=== PATIENT | male | born 1990 | race Caucasian/White ===

== ENCOUNTER 2017-12-03 23:02 | Inpatient (IN) | payer BC, SELFPAY ==
[2017-12-03 23:02] VITALS: BP 134/74; PULSE 132; RESP 18; TEMP 38.2; O2SAT 95; BMI 31.7
[2017-12-03 23:20] VITALS: PULSE 123; TEMP 37.8
[2017-12-04] VITALS (8 sets, daily range): BP systolic 117–133; BP diastolic 56–81; PULSE 93–120; RESP 18–20; TEMP 36.8–39.2; O2SAT 94–98; BMI 32.1
[2017-12-04 01:13] LABS: Absolute Lymphocyte Count 2.13 X10^3/ul (0.83-4.51); Absolute Neutrophil Count 8.2 X10^3/uL (2.0-7.7); Basophil# 0.03 X10^3/uL; Basophil% 0.3 % (0-1); Eosinophil# 0.05 X10^3/uL; Eosinophils% 0.4 % (0-5); Hematocrit 41.1 % (40-54); Hemoglobin 14.1 g/dl (13.0-16.5); Lymphocyte # 2.13 X10^3/ul (4.0); Lymphocyte % 18.9 % (19-41); Mean Corp Hgb Conc 34.3 g/gl (32-36); Mean Corpuscular Hgb 29.3 pg (27.0-32.0); Mean Corpuscular Volume 85.4 fL (80-94); Mean Platelet Vol. 9.5 fl (6.2-12.0); Monocyte# 0.89 X10^3/uL; Monocyte% 7.9 % (0-10); Neutrophil # 8.15 X10^3/uL (2.7-7.7); Neutrophil % 72.3 % (47-70); Platelet Count 179 K/mm3 (150-450); RBC Distribution Width CV 12.2 % (11.6-14.6); RBC Distribution Width SD 38.2 fl (35.1-43.9); Red Blood Count 4.81 M/mm3 (4.6-6.2); White Blood Count 11.3 K/mm3 (4.4-11.0)
[2017-12-04] MEDS: Ketorolac 30 MG/ML Syringe IV ×3 (01:15→18:44)
[2017-12-04] MEDS: 0.9% Normal Saline 1,000 ML 1000 ML IV (01:15)
[2017-12-04 01:16] LABS: POSITIVE COUNT NO; POSITIVE DIFFERENTIAL NO; POSITIVE MORPHOLOGY NO
[2017-12-04 01:34] LABS: Anion Gap 9 (5-15); BUN 14 mg/dL (7-18); BUN/Creat Ratio 10.3 RATIO (10-20); Calcium,Total 8.6 mg/dL (8.5-10.1); Chloride 104 mmol/L (98-107); Creatinine, Serum 1.36 mg/dL (0.70-1.30); EST Glomerular Filtration Rate 66 mL/min (>60); Est Glom Filt Rate - Afr Amer 79 mL/min (>60); Estimated Creatinine Clearance 67.11 ml/min; Glucose 109 mg/dL (74-106); Potassium 3.9 mmol/L (3.5-5.1); Sodium Level 139 mmol/L (136-145)
--- NOTE | 2017-12-04 01:59 | PCM.HP.STD ---
Problem List (1) Boils Status: Acute (2) LEXY (acute kidney injury) Status: Acute History of Present Illness Date of Admission: 12/04/17 Chief Complaint: MULTIPLE BOILS The patient is a 27 year old previously healthy male who presents with multiple boils. Patient reports that about a week ago he developed a small pimple on his bilateral buttocks and also on his neck. These multiple boils progressively increased in size and became more painful. He reports progressively worsening redness at the site of these boils. Because of pain emanating from these boils it has been difficult for him to walk or to sit. Associated with his symptoms is subjective fever, chills and anorexia. At emergency department, patient was found to have a fever of 100.7 and his heart rate went as high as 132. Patient was given vancomycin and Ancef at emergency department. 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 He denies any use of IV drugs. Multiple boils with accompany cellulitis Emergency room doctor reported ultrasound of boil areas did not show any fluid collection. Blood culture x 2 was drawn at emergency department. Received vancomycin and Ancef at emergency department. MRSA PCR serology returned positive. On admission patient was initially started on vancomycin and Unasyn but with MRSA PCR returning positive Unasyn was discontinued; and vancomycin continued. Echocardiogram was ordered. Morphine as needed; oxycodone as needed and Tylenol as needed ordered. Antiemetics as needed ordered. Infectious disease was consulted to optimize management. LEXY His creatinine on admission was 1.36. No other creatinine on file. BUN/creatinine less than 20 Likely intrinsic renal LEXY from infection Prerenal cannot be completely ruled out. Urine sodium; a urine creatinine ordered. Gentle IV hydration Avoid nephrotoxic's. DVT prophylaxis Low risk Ambulate Past Medical History Allergies Sulfa (Sulfonamide Antibiotics) Adverse Reaction (Verified 12/03/17 23:04) Rash Home Medications: Ambulatory Orders Medication Instructions Recorded NK [NK] 12/03/17 Surgical History: no surgical history Lives: Spouse/ Significant Other Smoking Status: Former smoker Alcohol: Occasional - *Family History Maternal History Items: Heart Disease Paternal History Items: Heart Disease Review of Systems Constitutional: Reports: Chills, Fever - Subjective HEENT: Denies: Head Aches, Sinus Congestion, Sinus Drainage Cardiovascular: Denies: Chest Pain, Palpitations Respiratory: Reports: Cough - He attributes to acid reflux Gastrointestinal: Denies: Abdominal Pain, Nausea, Vomiting Genitourinary: Denies: Dysuria Musculoskeletal: Denies: Joint Pain, Joint Tenderness Skin: Denies: Rash, Wounds Neurological: Denies: Numbness, Tingling, Focal weakness Psychiatric: Denies: Anxiety, Depression, Homicidal Ideations, Suicidal Ideations Hematologic/ Lymphatic: Denies: Easy Bruising, Easy Bleeding VTE Information - Inpt Only VTE Present on Admission: No VTE Mechan Device Prophylaxis: None VTE Pharm Prophylaxis ordered?: No Reason prophylaxis not ordered:: Treatment Not Indicated - Low risk Patient Problems: Active and Suspected Problems Boils (Acute) LEXY (acute kidney injury) (Acute) - Physical Exam General: Alert, Oriented x3, Cooperative HEENT: Atraumatic, PERRLA, EOMI, Normocephalic Neck: Supple, No JVD, Negative Carotid Bruits Lungs: Clear to auscultation, Normal air movement Cardiovascular: No murmurs, Tachycardic Abdomen: Bowel Sounds Present Extremities: No edema, Capillary Refill Less than 3 Seconds Skin: - - Indurated area with surrounding redness at the lower neck, close to left shoulder; indurated area; midline necrotic area with surrounding redness at bilateral buttocks. Areas stated above are tender. Vital Signs Temp Pulse Resp BP Pulse Ox 100.3 F H 119 H 18 119/72 96 12/04/17 01:20 12/04/17 01:20 12/04/17 01:20 12/04/17 01:20 12/04/17 01:20 Oxygen Delivery Method Room Air Weight: 83.915 kg Body Mass Index (BMI) 31.7 Laboratory Tests Past 24 Hrs 12/04/17 12/04/17 12/04/17 01:00 01:00 01:00 WBC 11.3 H RBC 4.81 Hgb 14.1 Hct 41.1 MCV 85.4 MCH 29.3 MCHC 34.3 RDW 12.2 RDW Differential 38.2 Plt Count 179 MPV 9.5 Immature Gran % (Auto) 0.200 Neut % (Auto) 72.3 H Lymph % (Auto) 18.9 L [place] % (Auto) 7.9 Eos % (Auto) 0.4 Baso % (Auto) 0.3 Absolute Neuts (auto) 8.2 H Absolute Lymphs (auto) 2.13 Total Counted Not Reportable Sodium 139 Potassium 3.9 Chloride 104 Carbon Dioxide 26.0 Anion Gap 9 BUN 14 Creatinine 1.36 H Estim Creat Clear Calc 67.11 Est GFR (MDRD) Af Amer 79 Est GFR (MDRD) Non-Af 66 BUN/Creatinine Ratio 10.3 Glucose 109 H Lactic Acid 1.0 Calcium 8.6 Assessment/Plan All Active Problems Boils (Acute) LEXY (acute kidney injury) (Acute) The patient is a 27 year old previously healthy male who presents with multiple boils; chills; subjective fever; and found to have a positive MRSA PCR and mild leukocytosis. Multiple boils with accompany cellulitis Emergency room doctor reported ultrasound of boil areas did not show any fluid collection. Blood culture x 2 was drawn at emergency department. Received vancomycin and Ancef at emergency department. MRSA PCR serology returned positive. On admission patient was initially started on vancomycin and Unasyn but with MRSA PCR returning positive Unasyn was discontinued; and vancomycin continued. Echocardiogram was ordered. Morphine as needed; oxycodone as needed and Tylenol as needed ordered. Antiemetics as needed ordered. Infectious disease was consulted to optimize management. LEXY His creatinine on admission was 1.36. No other creatinine on file. BUN/creatinine less than 20 Likely intrinsic renal LEXY from infection Prerenal cannot be completely ruled out. Urine sodium; a urine creatinine ordered. Gentle IV hydration Avoid nephrotoxic's. DVT prophylaxis Low risk Ambulate Code Visit Inpatient E&M: 67931 Init Hosp L3
--- NOTE | 2017-12-04 02:08 | ED.DCSUM_ITS ---
- ER Visit Summary Date of Service: 12/04/17 Chief Complaint: Boils History of Present Illness: The patient is a 27 M who presents with chief complaint of boils. He initially noticed zits on his bilateral buttocks and right shoulder about 1 week ago. They have significantly worsened in the last 2-3 days. He reports chills. He complains of pain. Physical Examination: Temperature 100.1 heart rate 123 Moist mucous membranes Heart regular rhythm tachycardia Lungs are clear Abdomen soft Patient has areas of cellulitis with a central wound over the posterior right shoulder and bilateral buttocks. Essentially the entirety of each buttock is cellulitic very hot to the touch and indurated there does not appear to be any perianal involvement Test Results: Labs notable for white blood cell count 11.3. Creatinine 1.36. Lactic acid normal. [id number] ultrasound performed by myself showed no focal fluid collections amenable to incision and drainage at any of 3 sites. Emergency Department Course and Treatment: Patient was treated with Ancef and vancomycin. He was given Toradol and Tylenol. He states his pain is significantly improved on reevaluation. However he is persistently tachycardic. Given his fever tachycardia and the extent of the cellulitis I do feel he would benefit from hospital observation for ongoing IV antibiotics. He was discussed with the hospitalist and admitted. Treatment Plan: [] Disposition: Admit Impression: Cellulitis, right shoulder and bilateral buttocks This note was generated with [employer] dictation software. It may contain incorrect words, spelling, and punctuation that were not noted in review of the chart prior to signing ED Disposition - Plan for ED Patient: Chief Complaint: Abscess Referrals: Amor Sequeira MD [Primary Care Provider] -
[2017-12-04] MEDS: Acetaminophen 650 MG/20 ML UDC PO ×2 (02:28→18:03)
[2017-12-04] MEDS: Cefazolin 2 GM in 0.9% Normal Saline 100 ML IV (03:24)
--- NOTE | 2017-12-04 03:35 | PHA.PHARE_ITS ---
Consult Pharmacy has been consulted to manage selected antiobiotic: Vancomycin Type of Consult: New start Suspected Infection: Skin/Soft tissue Labs: Sodium 139 mmol/L (136-145) 12/04/17 01:00 Potassium 3.9 mmol/L (3.5-5.1) 12/04/17 01:00 Chloride 104 mmol/L (98-107) 12/04/17 01:00 Carbon Dioxide 26.0 mmol/L (21.0-32.0) 12/04/17 01:00 Anion Gap 9 (5-15) 12/04/17 01:00 BUN 14 mg/dL (7-18) 12/04/17 01:00 Creatinine 1.36 mg/dL (0.70-1.30) H 12/04/17 01:00 Est GFR (MDRD) Af Amer 79 mL/min (>60) 12/04/17 01:00 Est GFR (MDRD) Non-Af 66 mL/min (>60) 12/04/17 01:00 BUN/Creatinine Ratio 10.3 RATIO (10-20) 12/04/17 01:00 Glucose 109 mg/dL (74-106) H 12/04/17 01:00 Estimated Creatinine Clearance: 67.11 Goal Trough: 10-15 mcg/mL Pharmacy Plan for Drug Dosing: Pharmacy Service will continue to monitor and adjust dosing as required. Medications Vancomycin HCl (Vancomycin) 1,000 mg in 200 mls @ 200 mls/hr IV Q12H [facility] Follow-Up Labs: Trough Vancomycin Labs to be done on [date and time ordered]: 12/05 @ 1330
[2017-12-04 03:41] LABS: Bedside Glucose 144 mg/dL (70-110)
[2017-12-04] MEDS: 0.9% Normal Saline 1,000 ML 100 ML IV (04:10)
[2017-12-04 04:28] LABS: Urine Sodium 52 mmol/L (Not Establ.)
[2017-12-04 05:48] LABS: Probe Check PASS
[2017-12-04 05:50] LABS: Absolute Lymphocyte Count 2.53 X10^3/ul (0.83-4.51); Basophil# 0.03 X10^3/uL; Basophil% 0.3 % (0-1); Eosinophils% 0.9 % (0-5); Hematocrit 39.3 % (40-54); Hemoglobin 13.4 g/dl (13.0-16.5); Lymphocyte # 2.53 X10^3/ul (4.0); Lymphocyte % 23.9 % (19-41); Mean Corp Hgb Conc 34.1 g/gl (32-36); Mean Corpuscular Volume 85.1 fL (80-94); Mean Platelet Vol. 9.6 fl (6.2-12.0); Monocyte# 0.96 X10^3/uL; Monocyte% 9.1 % (0-10); Neutrophil # 6.95 X10^3/uL (2.7-7.7); Neutrophil % 65.6 % (47-70); Platelet Count 187 K/mm3 (150-450); RBC Distribution Width SD 36.2 fl (35.1-43.9); Red Blood Count 4.62 M/mm3 (4.6-6.2); White Blood Count 10.6 K/mm3 (4.4-11.0)
[2017-12-04 05:50] LABS: M R Staph aureus DNA By PCR POSITIVE (Negative)
[2017-12-04 06:02] LABS: POSITIVE COUNT NO; POSITIVE DIFFERENTIAL NO; POSITIVE MORPHOLOGY NO
[2017-12-04 06:10] LABS: Anion Gap 8 (5-15); BUN 12 mg/dL (7-18); BUN/Creat Ratio 9.4 RATIO (10-20); Calcium,Total 8.2 mg/dL (8.5-10.1); Chloride 107 mmol/L (98-107); Creatinine, Serum 1.27 mg/dL (0.70-1.30); EST Glomerular Filtration Rate 71 mL/min (>60); Est Glom Filt Rate - Afr Amer 86 mL/min (>60); Estimated Creatinine Clearance 71.86 ml/min; Glucose 115 mg/dL (74-106); Potassium 3.5 mmol/L (3.5-5.1); Sodium Level 142 mmol/L (136-145)
[2017-12-04 07:34] LABS: Hemoglobin A1c 5.2 % (4.2-6.3)
[2017-12-04] MEDS: Morphine 2 MG/ML Syringe IV (09:54)
--- NOTE | 2017-12-04 10:43 | ECHOD_ITS ---
Reason For Study: + MRSA, R/O VEGETATION Procedure This was a 2D Doppler, Color Flow transthoracic echocardiogram. Exam performed portable in patient room. Left Ventricle Normal size and thickness. The estimated ejection fraction is 65 %. Normal diastology for age. No regional wall motion abnormalities noted. Right Ventricle Normal size and thickness. Normal systolic function. Atria Normal left atrium. Normal right atrium. Normal atrial septum. Mitral Valve The mitral valve is structurally normal. No prolapse or stenosis seen. Tricuspid Valve Normal tricuspid valve. Trivial tricuspid valve insufficiency. Right ventricular systolic pressure estimated to be 24 mmHg. Aortic Valve Normal aortic valve. Trisinus/trileaflet aortic valve. Pulmonic Valve Normal pulmonic valve. Trivial pulmonic valve insufficiency. Great Vessels Normal aortic root. Normal arch. Normal inferior vena cava. Inferior vena cava collapse with sniff. Pericardium/Pleural No pericardial effusion. MMode/2D Measurements & Calculations LVIDd: 4.4 cm IVSd: 0.94 cm Ao root diam: 3.2 cm LVIDs: 2.8 cm LVPWd: 0.95 cm LA dimension: 3.1 cm RVDd: 3.1 cm FS: 36.8 % LAV(MOD-bp): 33.5 ml LA A4 area: 13.5 cm2 RA A4 area: 11.0 cm2 LAV(MOD-bp) Indexed: 17.6 ml/m2 LAV(MOD-sp2): 31.3 ml LAV(MOD-sp4): 32.6 ml Doppler Measurements & Calculations MV E max alex: 85.3 cm/sec Lat Peak E' Alex: 16.0 cm/sec Med Peak E' Alex: 12.6 cm/sec MV A max alex: 63.9 cm/sec E/E' lat: 5.3 E/E' med: 6.8 MV E/A: 1.3 Ao V2 max: 113.2 cm/sec LV V1 max: 84.9 cm/sec PA V2 max: 104.2 cm/sec Ao max P.1 mmHg LV V1 max P.9 mmHg Interpretation Summary The estimated ejection fraction is 65 %. Normal diastology for age. Trivial tricuspid valve insufficiency. Right ventricular systolic pressure estimated to be 24 mmHg. There is no comparison study available. Ordering Physician: Juan Brunner Referring Physician: Amor Sequeira Performed By: Kemi Hunt, JOSE MANUEL, RVT
--- NOTE | 2017-12-04 11:36 | PCM.HP.ID ---
Problem List (1) Boils Status: Acute Reason for Consult: boils Consulted by: Dr. Oswald History of Present Illness: The patient is a 27 year old M with h/o MRSA chin infection in the spring who presented last night with one week of painful, red, swollen, draining abscess on back of neck and bilateral buttocks. Started as small bumps, tried popping one when it came to a head. Using peroxide and warm compresses. No outpt abx. with h/o MRSA as well. Developed fever, chills, some bloody/purulent drainage. Some nausea. Came to ED, given unasyn and cefazolin. Now on vanc. Full ROS performed and neg except as noted above. - Medical History Allergies/Adverse Reactions: Allergies Sulfa (Sulfonamide Antibiotics) Adverse Reaction (Verified 12/03/17 23:04) Rash Home Medications: Ambulatory Orders Medication Instructions Recorded NK [NK] 12/03/17 - Social History SMOKING STATUS:: Former smoker Vital Signs Temp Pulse Resp BP Pulse Ox 98.3 F 108 H 18 133/78 H 98 12/04/17 09:52 12/04/17 09:52 12/04/17 09:52 12/04/17 09:52 12/04/17 09:52 Oxygen Delivery Method Room Air Weight: 84.9 kg Body Mass Index (BMI) 32.1 Laboratory Tests Past 24 Hrs 12/04/17 12/04/17 12/04/17 03:35 04:00 04:00 WBC RBC Hgb Hct MCV MCH MCHC RDW RDW Differential Plt Count MPV Immature Gran % (Auto) Neut % (Auto) Lymph % (Auto) [place] % (Auto) Eos % (Auto) Baso % (Auto) Absolute Neuts (auto) Absolute Lymphs (auto) Total Counted Sodium Potassium Chloride Carbon Dioxide Anion Gap BUN Creatinine Estim Creat Clear Calc Est GFR (MDRD) Af Amer Est GFR (MDRD) Non-Af BUN/Creatinine Ratio Glucose Hemoglobin A1c Calcium Ur Random Sodium 52 Urine Creatinine 56.70 MRSA (PCR) POSITIVE H 12/04/17 12/04/17 12/04/17 05:10 05:10 05:10 WBC 10.6 RBC 4.62 Hgb 13.4 Hct 39.3 L MCV 85.1 MCH 29.0 MCHC 34.1 RDW 12.0 RDW Differential 36.2 Plt Count 187 MPV 9.6 Immature Gran % (Auto) 0.200 Neut % (Auto) 65.6 Lymph % (Auto) 23.9 [place] % (Auto) 9.1 Eos % (Auto) 0.9 Baso % (Auto) 0.3 Absolute Neuts (auto) 7.0 Absolute Lymphs (auto) 2.53 Total Counted Not Reportable Sodium 142 Potassium 3.5 Chloride 107 Carbon Dioxide 27.0 Anion Gap 8 BUN 12 Creatinine 1.27 Estim Creat Clear Calc 71.86 Est GFR (MDRD) Af Amer 86 Est GFR (MDRD) Non-Af 71 BUN/Creatinine Ratio 9.4 L Glucose 115 H Hemoglobin A1c 5.2 Calcium 8.2 L Ur Random Sodium Urine Creatinine MRSA (PCR) - Other Studies Radiology: [] reviewed Other Studies: [] Route of nutrition/ use of supplements: [] Nutritional Intake: [] IV Site: [] Berkowitz Catheter: [] - Physical Exam General: Alert, Oriented x3, Cooperative, No apparent distress HEENT: Atraumatic, PERRLA, EOMI Neck: Supple, No Nodes Lungs: Clear to auscultation, Normal air movement Cardiovascular: Regular rate, Regular Rhythm Abdomen: Soft, Non Tender, Non-Distended Extremities: No edema Skin: - - 3 warm, tender, red, indurated areas of swelling with some central ulceration on back of neck and each buttock. IV Site: Peripheral, without redness Musculoskeletal: No Tenderness to Palpation of Joints or Extremities Neurological: Cranial nerves II-XII grossly intact - Assessment/Plan Antibiotics: [] Assessment/Plan: [] Active and Suspected Problems Boils (Acute) LEXY (acute kidney injury) (Acute) MRSA skin abscess on neck and bilat buttocks - one prior episode of skin infection. Reports rash with bactrim. Cont vanc. Recommend surg consult for I&D. Will follow, thank you.
--- NOTE | 2017-12-04 11:55 | CASEMGMT ---
SEE RN CM ASSESS LINK: D/C PLAN: Home Intro self and RN CM role to pt and pt's , Miriam, who is at bedside. Pt is alert/oriented, willing to participate in assessment, and able to answer questions appropriately. Pt is independent w/all ADL's, uses no DME, denies needs, and no needs identified. Pt wishes to return home @ discharge. Surgery consult pending. CM to follow for any discharge planning needs that may arise. Juan JAQUEZN RN CM
[2017-12-04] MEDS: 0.9% NaCl Peripheral Flush Adult/Peds IV ×2 (12:19→18:44)
--- NOTE | 2017-12-04 13:19 | PCA ---
doctor and rn in with pt
[2017-12-04] MEDS: Vancomycin IV 1,000 MG/200 ML BAG 200 MG IV (13:41)
--- NOTE | 2017-12-04 15:32 | PCM.CONS.GEN ---
Reason for Consult Date of Consultation: 12/04/17 History of Present Illness: The patient is a 27 year old M with a previous history of MRSA infection in his chin, who now presents with a few day history of increasing erythema, tenderness and now pain with sitting and 2 areas on his right and left gluteal regions and a smaller as upper back. The patient was seen in emergency department. A nasal swab for MRSA was obtained which was positive. The 2 buttock sites were evaluated in the area with ultrasound and felt not to contain pus. The patient was admitted, started on antibiotics. Evaluation there by the medicine service noted was felt to be more erythema on both the right and left buttock areas along with black skin/tissue necrosis in the center of the left buttock region. I was contacted for likely MRSA abscesses Past Medical History Allergies Sulfa (Sulfonamide Antibiotics) Adverse Reaction (Verified 12/03/17 23:04) Rash Home Medications: Ambulatory Orders Medication Instructions Recorded NK [NK] 12/03/17 Surgical History: no surgical history Lives: Spouse/ Significant Other Smoking Status: Former smoker Alcohol: Occasional - *Family History Maternal History Items: Heart Disease Paternal History Items: Heart Disease Review of Systems Constitutional: Denies: Chills, Fever, Weight Change HEENT: Denies: Head Aches, Sinus Congestion, Sinus Drainage Cardiovascular: Denies: Chest Pain, Palpitations Respiratory: Denies: Cough, Shortness of breath at rest, Sputum production Gastrointestinal: Denies: Abdominal Pain, Nausea, Vomiting Genitourinary: Denies: Dysuria Musculoskeletal: Denies: Joint Pain, Joint Tenderness Skin: Denies: Rash, Wounds Neurological: Denies: Numbness, Tingling, Focal weakness Psychiatric: Denies: Anxiety, Depression, Homicidal Ideations, Suicidal Ideations Hematologic/ Lymphatic: Denies: Easy Bruising, Easy Bleeding Patient Problems: Active and Suspected Problems Boils (Acute) LEXY (acute kidney injury) (Acute) - Physical Exam General: Alert, Oriented x3 Lungs: Clear to auscultation, Normal air movement Cardiovascular: Regular rate, Regular Rhythm Abdomen: Bowel Sounds Present, Soft Skin: - - right and left buttock areas, 2 areas of cellulitis and induration without true fluctuance. On the left lower buttock region, there is a 1 cm central area of what appears to be skin necrosis. The skin relatively black. On the left buttock, there is a very small point area of darkness. Both these sites were suspicious for undrained MRSA abscesses. Vital Signs Temp Pulse Resp BP Pulse Ox 99.2 F H 93 18 126/81 H 98 12/04/17 13:39 12/04/17 13:39 12/04/17 13:39 12/04/17 13:39 12/04/17 13:39 Oxygen Delivery Method Room Air Weight: 84.9 kg Body Mass Index (BMI) 32.1 Intake and Output for Last 24 Hours 12/02/17 12/03/17 12/04/17 23:59 23:59 23:59 Intake Total 1508 / 1508 Balance 1508 / 1508 Laboratory Tests Past 24 Hrs 12/04/17 12/04/17 12/04/17 03:35 04:00 04:00 WBC RBC Hgb Hct MCV MCH MCHC RDW RDW Differential Plt Count MPV Immature Gran % (Auto) Neut % (Auto) Lymph % (Auto) [place] % (Auto) Eos % (Auto) Baso % (Auto) Absolute Neuts (auto) Absolute Lymphs (auto) Total Counted Sodium Potassium Chloride Carbon Dioxide Anion Gap BUN Creatinine Estim Creat Clear Calc Est GFR (MDRD) Af Amer Est GFR (MDRD) Non-Af BUN/Creatinine Ratio Glucose Hemoglobin A1c Calcium Ur Random Sodium 52 Urine Creatinine 56.70 MRSA (PCR) POSITIVE H 12/04/17 12/04/17 12/04/17 05:10 05:10 05:10 WBC 10.6 RBC 4.62 Hgb 13.4 Hct 39.3 L MCV 85.1 MCH 29.0 MCHC 34.1 RDW 12.0 RDW Differential 36.2 Plt Count 187 MPV 9.6 Immature Gran % (Auto) 0.200 Neut % (Auto) 65.6 Lymph % (Auto) 23.9 [place] % (Auto) 9.1 Eos % (Auto) 0.9 Baso % (Auto) 0.3 Absolute Neuts (auto) 7.0 Absolute Lymphs (auto) 2.53 Total Counted Not Reportable Sodium 142 Potassium 3.5 Chloride 107 Carbon Dioxide 27.0 Anion Gap 8 BUN 12 Creatinine 1.27 Estim Creat Clear Calc 71.86 Est GFR (MDRD) Af Amer 86 Est GFR (MDRD) Non-Af 71 BUN/Creatinine Ratio 9.4 L Glucose 115 H Hemoglobin A1c 5.2 Calcium 8.2 L Ur Random Sodium Urine Creatinine MRSA (PCR) POC Glucose 12/04/17 03:11 POC Glucose 144 H Assessment/Plan All Active Problems Boils (Acute) LEXY (acute kidney injury) (Acute) PROCEDURE: INCISION AND DRAINAGE OF BUTTOCK CELLULITIS/ABSCESS After consent was obtained and the site, person, and procedure verified, the patient`s skin was prepped and draped in the usual fashion. Lidocaine was injected into the skin on the left buttock area over the central area. An 18-gauge needle was inserted into the site without any significant pus being aspirated. Given the fact that there was necrotic tissue. A circular incision was made over the black./Necrotic tissue. This was excised and then sent for culture. The wound was again probed with no significant purulent drainage. The cavity was packed with iodoform gauze. Lidocaine was injected into the skin on the right buttock area over the central area. An 18-gauge needle was inserted into the site without any significant pus being aspirated. the site was not opened or packed. The patient tolerated the procedure well. impression-likely MRSA cellulitis/questionable early abscess. We will follow these areas. Would not be surprised if this did coalesce to a more drainable abscess or have purulent drainage from the already open site. Recommend continuing antibiotics. Await culture swab from tissue I sent to assure MRSA.
--- NOTE | 2017-12-04 18:34 | PCM.HOSP.N ---
Hospitalist Note Patient seen and examined briefly today, I discussed his care with infectious diseases and general surgery saw the patient in an attempt to drain 1 of the patient's boils-general surgery is not able to obtain any drainage from any of the patient's boils. Patient will remain on his present antibiotic coverage and be reevaluated by infectious diseases myself tomorrow
[2017-12-05] MEDS: Vancomycin IV 1,000 MG/200 ML BAG 200 MG IV ×2 (01:43→13:42)
[2017-12-05] MEDS: 0.9% NaCl Peripheral Flush Adult/Peds IV ×4 (01:43→22:30)
[2017-12-05 01:48] VITALS: BP 114/83; PULSE 120; RESP 18; TEMP 38; O2SAT 96
[2017-12-05] MEDS: Acetaminophen 650 MG/20 ML UDC PO ×2 (01:58→19:43)
[2017-12-05] MEDS: Ketorolac 30 MG/ML Syringe IV ×3 (02:57→19:43)
[2017-12-05 06:07] VITALS: TEMP 36.8
--- NOTE | 2017-12-05 07:33 | PCM.PN.SRG ---
Patient Problems: Active and Suspected Problems Boils (Acute) LEXY (acute kidney injury) (Acute) Subjective: same level of discomfort at the back and buttocks sites - Physical Exam Skin: - - continued induration around the previously drained left buttock site and similar induration on the right buttock site. The packing was removed, there was no purulent drainage. The tissue appears viable Vital Signs Temp Pulse Resp BP Pulse Ox 98.3 F 120 H 18 114/83 H 96 12/05/17 06:07 12/05/17 01:48 12/05/17 01:48 12/05/17 01:48 12/05/17 01:48 Oxygen Delivery Method Room Air Weight: 84.9 kg Body Mass Index (BMI) 32.1 Intake and Output for Last 24 Hours 12/03/17 12/04/17 12/05/17 23:59 23:59 23:59 Intake Total 2308 / 2308 742 / 742 Balance 2308 / 2308 742 / 742 Laboratory Tests Past 24 Hrs 12/04/17 05:10 Hemoglobin A1c 5.2 Medical Necessity - Tobacco Use Smoking Status: Former smoker Assessment/Plan All Active Problems Boils (Acute) LEXY (acute kidney injury) (Acute) impression-likely MRSA cellulitis/questionable early abscess. We will follow these areas. Would not be surprised if this did coalesce to a more drainable abscess or have purulent drainage from the already open site. Recommend continuing antibiotics. Await culture swab from tissue I sent to assure MRSA.
[2017-12-05 08:30] VITALS: BP 125/85; PULSE 108; RESP 18; TEMP 37.3; O2SAT 99
--- NOTE | 2017-12-05 10:14 | PCM.PROGNOTE ---
Patient Problems: Active and Suspected Problems Boils (Acute) LEXY (acute kidney injury) (Acute) Subjective: Patient seen and examined today, he states his pain from his boils is controlled with Toradol. General surgery saw the patient this morning and feels that the reddened area on his left buttocks is improved today. Patient's T-max for today is 100.4. - Physical Exam General: Alert, Oriented x3, Cooperative, No apparent distress, Well developed, Well nourished HEENT: Atraumatic, PERRLA, EOMI, Normocephalic Oral: Moist Mucosa Neck: Supple, No Nuchal Rigidity, Trachea Midline, Thyroid Normal Size and Texture Lungs: Clear to auscultation, Normal air movement, No rhonchi, No wheeze, No rales Cardiovascular: Regular rate, Regular Rhythm, Normal S1, Normal S2, No murmurs, No Ectopic Activity Abdomen: Bowel Sounds Present, Soft, Non Tender, Non-Distended Extremities: No edema, Capillary Refill Less than 3 Seconds Musculoskeletal: No Tenderness to Palpation of Joints or Extremities Neurological: Cranial nerves II-XII grossly intact, Neuro grossly intact, Sensory exam intact to light touch and pain, Coordination normal Psych/Mental Status: Normal Affect, Appropriate, Alert and oriented to time, place, person, mood and affect Vital Signs Temp Pulse Resp BP Pulse Ox 99.2 F H 108 H 18 125/85 H 99 12/05/17 08:30 12/05/17 08:30 12/05/17 08:30 12/05/17 08:30 12/05/17 08:30 Oxygen Delivery Method Room Air Weight: 84.9 kg Body Mass Index (BMI) 32.1 Intake and Output for Last 24 Hours 12/03/17 12/04/17 12/05/17 23:59 23:59 23:59 Intake Total 2308 / 2308 742 / 742 Balance 2308 / 2308 742 / 742 Medical Necessity - Tobacco Use Smoking Status: Former smoker Assessment/Plan All Active Problems Boils (Acute) LEXY (acute kidney injury) (Acute) #1 multiple skin boils over buttocks and upper mid back area-from MRSA, continue vancomycin IV, ID is seeing the patient, he will probably go home on p.o. antibiotics. Code Visit Inpatient E&M: 74464 Subs Hosp L2
--- NOTE | 2017-12-05 11:09 | PCM.PN.ID ---
Patient Problems: Active and Suspected Problems Boils (Acute) LEXY (acute kidney injury) (Acute) Subjective: Fever overnight, feeling a little better. Buttocks still sore. Neck better after some pus drained this AM. - Physical Exam General: Alert, Cooperative, No apparent distress Lungs: Clear to auscultation, Normal air movement Cardiovascular: Regular rate, Regular Rhythm Abdomen: Soft, Non Tender, Non-Distended Skin: - - redness/induration/pain/warmth over neck and bilat buttocks Vital Signs Temp Pulse Resp BP Pulse Ox 99.2 F H 108 H 18 125/85 H 99 12/05/17 08:30 12/05/17 08:30 12/05/17 08:30 12/05/17 08:30 12/05/17 08:30 Oxygen Delivery Method Room Air Weight: 84.9 kg Body Mass Index (BMI) 32.1 Intake and Output for Last 24 Hours 12/03/17 12/04/17 12/05/17 23:59 23:59 23:59 Intake Total 2308 / 2308 742 / 742 Balance 2308 / 2308 742 / 742 Medical Necessity - Tobacco Use Smoking Status: Former smoker Route of nutrition/ use of supplements: [] Nutritional Intake: [] IV Site: [] Berkowitz Catheter: [] - Assessment/Plan Antibiotics: [] Assessment/Plan: [] Active and Suspected Problems Boils (Acute) LEXY (acute kidney injury) (Acute) suspected MRSA skin abscess on neck and bilat buttocks - one prior episode of skin infection. Reports rash with bactrim. Cont vanc. Neck better after some drainage happened. Surgery following. Will follow
[2017-12-05 13:34] LABS: Vancomycin, Trough Level 5.3 ug/mL (5.0-15.0)
[2017-12-05 13:41] VITALS: BP 134/87; PULSE 105; RESP 18; TEMP 36.7; O2SAT 98
--- NOTE | 2017-12-05 15:04 | PCM.RX.CS ---
Consult Pharmacy has been consulted to manage selected antiobiotic: Vancomycin Type of Consult: Follow-up Suspected Infection: Skin/Soft tissue Prior Doses of Antibiotics Received/Current Regimen: VANCOMYCIN 1000MG IV Q12H 12/05 @0143, 1342 Labs: Sodium 142 mmol/L (136-145) 12/04/17 05:10 Potassium 3.5 mmol/L (3.5-5.1) 12/04/17 05:10 Chloride 107 mmol/L (98-107) 12/04/17 05:10 Carbon Dioxide 27.0 mmol/L (21.0-32.0) 12/04/17 05:10 Anion Gap 8 (5-15) 12/04/17 05:10 BUN 12 mg/dL (7-18) 12/04/17 05:10 Creatinine 1.27 mg/dL (0.70-1.30) 12/04/17 05:10 Est GFR (MDRD) Af Amer 86 mL/min (>60) 12/04/17 05:10 Est GFR (MDRD) Non-Af 71 mL/min (>60) 12/04/17 05:10 BUN/Creatinine Ratio 9.4 RATIO (10-20) L 12/04/17 05:10 Glucose 115 mg/dL (74-106) H 12/04/17 05:10 Vancomycin Trough 5.3 ug/mL (5.0-15.0) 12/05/17 12:40 Microbiology: Microbiology 12/04/17 13:30 Other - Buttock Gram Stain - Final 12/04/17 13:30 Other - Buttock Tissue Culture - Preliminary Staphylococcus aureus Weight used for dosin.9 kg Estimated Creatinine Clearance: 71ML/MIN Goal Trough: 10-15 mcg/mL Pharmacy Plan for Drug Dosing: Pharmacy to manage vancomycin for suspected SSTI. The patient had a trough drawn which resulted in a value of 5.3 (11hr level). Since the patient has a trough goal of 10-15, will increase the dose and check another trough prior to the 4th dose of new regimen. PLAN/RECOMMENDATIONS 1. Vancomycin 1250mg Q8hrs to start 12/05 @2200 2. Schedule trough for 12/06/17 @2130 3. Pharmacy Service will continue to monitor and adjust dosing as required.
[2017-12-05 19:53] VITALS: BP 135/78; PULSE 83; RESP 16; TEMP 38.2; O2SAT 100
[2017-12-05 22:37] VITALS: TEMP 37.4
[2017-12-06 02:55] VITALS: BP 129/84; PULSE 82; RESP 16; TEMP 36.4; O2SAT 98
[2017-12-06] MEDS: 0.9% NaCl Peripheral Flush Adult/Peds IV ×4 (05:51→13:27)
[2017-12-06 07:40] VITALS: BP 125/85; PULSE 102; RESP 16; TEMP 37.1; O2SAT 97
[2017-12-06 07:43] VITALS: PULSE 100
[2017-12-06 07:54] VITALS: O2SAT 95
[2017-12-06] MEDS: Ketorolac 30 MG/ML Syringe IV (07:57)
--- NOTE | 2017-12-06 14:29 | PCM.PN.ID ---
Patient Problems: Active and Suspected Problems Boils (Acute) LEXY (acute kidney injury) (Acute) Subjective: Feeling better, no fever, no n/v/d. - Physical Exam General: Alert, Cooperative, No apparent distress Lungs: Clear to auscultation, Normal air movement Cardiovascular: Regular rate, Regular Rhythm Abdomen: Soft, Non Tender, Non-Distended Skin: Ulcer/ Wound - neck improved, bilat buttocks abscess slightly better Vital Signs Temp Pulse Resp BP Pulse Ox 98.8 F 100 16 125/85 H 95 12/06/17 07:40 12/06/17 07:43 12/06/17 07:40 12/06/17 07:40 12/06/17 07:54 Oxygen Delivery Method Room Air Weight: 84.9 kg Body Mass Index (BMI) 32.1 Intake and Output for Last 24 Hours 12/04/17 12/05/17 12/06/17 23:59 23:59 23:59 Intake Total 2308 / 2308 1678 / 1678 Balance 2308 / 2308 1678 / 1678 Microbiology Past 72 Hours 12/04/17 13:30 Gram Stain - Final Other - Buttock Tissue Culture - Final Meth. resistant Staph. aureus Anaerobic Culture - Final No anaerobic bacteria isolated. Medical Necessity - Tobacco Use Smoking Status: Former smoker Route of nutrition/ use of supplements: [] Nutritional Intake: [] IV Site: [] Berkowitz Catheter: [] - Assessment/Plan Antibiotics: [] Assessment/Plan: [] Active and Suspected Problems Boils (Acute) LEXY (acute kidney injury) (Acute) suspected MRSA skin abscess on neck and bilat buttocks - one prior episode of skin infection. Reports rash with bactrim. Neck improved. Ok for d/c home on 10 days doxy capsults. Will follow
[2017-12-06 14:30] VITALS: BP 126/71; PULSE 90; RESP 18; TEMP 36.8; O2SAT 92
--- NOTE | 2017-12-06 15:50 | DCINST_ITS ---
- Discharge Diagnoses Current Active Problems: Current Active and Chronic Problems Boils (Acute) LEXY (acute kidney injury) (Acute) You will use the following diet at home:: No restrictions Your food should be the consistency of: Regular Your liquids should be the consistency of: Regular/Thin Discharge Activity: Return to Normal Activity Return to work on:: 12/09/17 Weight Bearing Status: Full weight bearing Allergies/Adverse Reactions: Allergies Sulfa (Sulfonamide Antibiotics) Adverse Reaction (Verified 12/03/17 23:04) Rash Medications to take at Discharge Doxycycline 100 mg PO BID #20 cap 12/06/17 The following prescriptions were given: Doxycycline 100 mg PO BID #20 cap Primary Care Physician: Amor Sequeira MD [Primary Care Provider] - Please follow up with your Primary Care Physician in: in 1-2 weeks Test Results: Test results from this visit will be discussed in further detail at your follow- up appointment, if applicable.
--- NOTE | 2017-12-08 11:07 | PCM.DC.SUM ---
Discharge Date and Diagnosis Date of Admission: 12/04/17 Date of Discharge: 12/06/17 - Primary Discharge Diagnosis #1 MRSA skin abscess on neck and bilateral buttocks #2 dehydration Hospital Course and Treatment Operations: None Procedures: 2-D Echocardiogram Summary of Care Provided: The patient is a 27 year old M who was seen in the emergency room at [facility] chief complaint of painful boils on his buttocks and upper back area. Workup in the emergency room included a CBC which showed a slightly elevated white blood cell count, patient's creatinine was slightly elevated at 1.36. Patient had a PCR performed on 1 of the areas and this came back positive for MRSA. Patient was admitted to [facility] surgical 2, maintained on IV vancomycin, was seen by general surgery who attempted to open up 1 of the areas for a culture but was unable to express any purulent discharge, and seen by infectious diseases. Patient improved during his hospital stay there were no complications, on 12/06/17, patient was seen and examined felt to be in stable condition for discharge home, he was discharged home on Vibramycin oral. Discharge Activity: Return to Normal Activity Return to work on:: 12/09/17 Weight Bearing Status: Full weight bearing Home Medications: Medications to take at Discharge Doxycycline 100 mg PO BID #20 cap 12/06/17 Following Prescrptions Were Given to Patient: Doxycycline 100 mg PO BID #20 cap Primary Care Physician: Amor Sequeira MD [Primary Care Provider] - Please follow up with your Primary Care Physician in: in 1-2 weeks Disposition: Home Minutes spent on discharge:: 32 Patient Condition:: Stable Medical Necessity - Tobacco Use Smoking Status: Former smoker Meaningful Use Info Meaningful Use Diagnoses (Choose all that apply): None applicable Code Visit Inpatient E&M: 94012 Disch Hosp
--- NOTE | 2017-12-08 11:11 | DS.PCM_ITS ---
Discharge Date and Diagnosis Date of Admission: 12/04/17 Date of Discharge: 12/06/17 - Primary Discharge Diagnosis #1 MRSA skin abscess on neck and bilateral buttocks #2 dehydration Hospital Course and Treatment Operations: None Procedures: 2-D Echocardiogram Summary of Care Provided: The patient is a 27 year old M who was seen in the emergency room at [facility] chief complaint of painful boils on his buttocks and upper back area. Workup in the emergency room included a CBC which showed a slightly elevated white blood cell count, patient's creatinine was slightly elevated at 1.36. Patient had a PCR performed on 1 of the areas and this came back positive for MRSA. Patient was admitted to [facility] surgical 2, maintained on IV vancomycin, was seen by general surgery who attempted to open up 1 of the areas for a culture but was unable to express any purulent discharge, and seen by infectious diseases. Patient improved during his hospital stay there were no complications, on 12/06/17, patient was seen and examined felt to be in stable condition for discharge home, he was discharged home on Vibramycin oral. Discharge Activity: Return to Normal Activity Return to work on:: 12/09/17 Weight Bearing Status: Full weight bearing Home Medications: Medications to take at Discharge Doxycycline 100 mg PO BID #20 cap 12/06/17 Following Prescrptions Were Given to Patient: Doxycycline 100 mg PO BID #20 cap Primary Care Physician: Amor Sequeira MD [Primary Care Provider] - Please follow up with your Primary Care Physician in: in 1-2 weeks Disposition: Home Minutes spent on discharge:: 32 Patient Condition:: Stable Medical Necessity - Tobacco Use Smoking Status: Former smoker Meaningful Use Info Meaningful Use Diagnoses (Choose all that apply): None applicable Code Visit Inpatient E&M: 36965 Disch Hosp
== END 2017-12-06 16:24 | disposition home or self-care (01) | DRG 603 ==
LOC: ED 12-04 00:37 → MS2 12-04 02:21
PROVIDERS: Admitting Provider Hospitalist; Emergency Provider Emergency Medicine; Family Provider Family Medicine; PCP Family Medicine; Visit Provider Internal Medicine
DX: L02.31 Cutaneous abscess of buttock (principal); L02.11 Cutaneous abscess of neck; N17.9 Acute kidney failure, unspecified; B95.62 Methicillin resistant Staphylococcus aureus infection as the cause of diseases classified elsewhere; E86.0 Dehydration; Z86.14 Personal history of Methicillin resistant Staphylococcus aureus infection
CPT/HCPCS: 36415; 80048; 80202; 82570; 82962; 83036; 83605; 84300; 85025; 87040; 87070; 87075; 87077; 87186; 87205; 87641; 93306; 99282; J7030; J7050; Q9957; A4216; J0295

== ENCOUNTER 2021-10-06 23:18 | Emergency (ER) | payer BC, SELFPAY ==
[2021-10-06 23:22] VITALS: BP 118/80; PULSE 133; RESP 18; TEMP 37.2; O2SAT 95; BMI 36.3
[2021-10-07 00:11] LABS: Bacteria 0 SEEN /hpf (None Seen); Mucous, Urine 0 SEEN /hpf (<or=2+); Red Blood Cells-Urine 0 SEEN /hpf (0-5); Squamous Epithelial Cells - UA 0 SEEN /hpf (0-5); White Blood Cells 0 SEEN /hpf (0-5)
[2021-10-07 00:37] LABS: Color, Urine Yellow (Yellow); Glucose, Dipstick Normal (Normal); Ketone-Dipstick Negative (Negative); Leukocyte Esterase-Dipstick 25 /ul (Negative); Nitrite-Dipstick Negative (Negative); Occult Blood-Urine 25 /ul (Negative); Protein-Dipstick 15 mg/dl (Negative); Urine Bilirubin Dipstick Negative (Negative); Urine Clarity Clear (Clear); Urine Urobilinogen Normal (Normal)
--- NOTE | 2021-10-07 00:39 | EDS_ITS ---
HPI History of Present Illness Chief Complaint: Male Pain/Injury Narrative Narrative: Patient is a 31-year-old male who states he was recently seen by his doctor with concern for prostatitis. He states he was started on Levaquin but that a few hours ago he spiked a fever up to 103. Patient states that he was concerned this could be secondary to his recent diagnosis of prostatitis and therefore comes in for evaluation. PFSH PFSH Medical History no medical history Home Medications levofloxacin 500 mg tablet 500 mg PO DAILY 10/06/21 [History Last Taken Unknown] dexamethasone 6 mg tablet (Decadron) 6 mg PO DAILY 10 days #10 tabs 10/07/21 [Rx Last Taken Unknown] promethazine 6.25 mg-codeine 10 mg/5 mL syrup 5 ml PO 4X/DAY PRN PRN cough 7 days #140 mL 10/07/21 [Rx Last Taken Unknown] Allergy/AdvReac Type Severity Reaction Status Date / Time Sulfa (Sulfonamide AdvReac Rash Verified 10/06/21 23:26 Antibiotics) Social History Smoking Status: Former smoker ROS [facility] ED Constitutional Constitutional ED: Reports chills and fever(s) ENT ENT ED: Reports rhinorrhea; Denies sore throat Cardiovascular Cardiovascular: Denies chest pain Respiratory/Chest Respiratory/Chest: Reports cough; Denies dyspnea Gastrointestinal Gastrointestinal: Denies abdominal pain, diarrhea, nausea or vomiting Genitourinary Genitourinary ED: Denies dysuria or hematuria Musculoskeletal Musculoskeletal: Reports myalgias Integumentary Denies rash Neurologic Neurologic: Denies headache(s) Hematologic/Lymphatic Hematologic/Lymphatic: Denies easy bleeding or easy bruising EXAM Physical Exam Const Vital Signs: 10/06/21 23:22 Temperature 99 F Temperature Source Temporal Pulse Rate 133 H Respiratory Rate 18 Blood Pressure 118/80 Blood Pressure Mean 92 Pulse Ox 95 Oxygen Delivery Method Room Air Positive well nourished and well developed General Appearance ED: well developed HEENT Reports moist mucous membranes HEENT Narrative: Cobblestoning the posterior pharynx consistent with sinus drainage without airway edema or compromise Eyes PERRL and EOMs intact bilaterally Neck supple Resp normal respiratory effort and clear to auscultation bilaterally Cardio regular rhythm Cardio Narrative: Tachycardic rate with regular rhythm. Radial pulses are plus 2 out of 4 bilaterally are equal and symmetric Rate: tachycardic GI non-tender and non-distended Auscultation: normoactive bowel sounds Palpation: soft Narrative: Normal circumcised male without blood or discharge from the urethral meatus. No testicular swelling or masses palpated. No obvious hernia noted. No overlying soft tissue changes to suggest Monster's gangrene Extremity normal to inspection Neuro oriented x3 and CN's II-XII intact bilaterally Sensorium / Orientation: alert Psych mental status grossly normal Skin no rashes or lesions noted MDM MDM MDM Narrative Medical decision making narrative: Patient reported a fever at home but was normal upon evaluation in the ER. His constellation of symptoms was more consistent with a viral infection and therefore COVID swab was obtained. COVID swab was positive which would indicate the cause of his fever as well as myalgias and mild congestion and cough. We discussed possible further work-up for the prostatitis but as we have a cause for symptoms did not feel was 100% necessary. Patient agrees with this and prefer to be discharged at this time. As he does not have signs of respiratory distress and is satting in the mid to high 90s on room air I do not feel there is a need for imaging studies or blood work and patient will be discharged home. He does not qualify for plaques of and therefore he was placed on Decadron and cough syrup and can return to ER if symptoms fail to improve or worsen. Discharge Plan Triage Chief Complaint: Male Pain/Injury ED Provider: John Goyal Dx/Rx/DC Orders Clinical Impression: COVID-19 Instructions: Coronavirus Disease 2019 (COVID-19): Caring for Yourself or Others Prescriptions: New dexamethasone [Decadron] 6 mg tablet 6 mg PO DAILY 10 Days Qty: 10 0RF promethazine-codeine 6.25-10 mg/5 mL syrup 5 ml PO 4X/DAY PRN PRN (Reason: cough) 7 Days Qty: 140 0RF No Action levofloxacin 500 mg Tablet 500 mg PO DAILY Primary Care Provider: Care Physician,No Primary Referrals: Care Physician,No Primary [Primary Care Provider] - Activity Restrictions/Additional Instructions: Please follow-up with your family physician for repeat evaluation and return to the ER should you have any further concerns. Please continue the Levaquin which was prescribed by your family doctor to treat possible prostate infection. Today's exam however indicates COVID as the cause of your fever but as you do not have respiratory distress or low oxygen level there is no need for admission and you can take the Decadron and cough syrup as directed to help control symptoms Disposition Disposition: Home, Self Care Discharge Date/Time: 10/07/21 00:59
[2021-10-07] MEDS: dexAMETHasone 10 MG/ML Vial PO.IVFORM (00:44)
[2021-10-07 00:58] VITALS: RESP 18; O2SAT 97
== END 2021-10-07 00:59 | disposition home or self-care (01) ==
PROVIDERS: Emergency Provider Emergency Medicine; Visit Provider Emergency Medicine
DX: U07.1 COVID-19 (principal); Z87.891 Personal history of nicotine dependence; Z79.899 Other long term (current) drug therapy
CPT/HCPCS: 81001; 87428; 99283